=== PATIENT | male | born 1975 | race Caucasian/White ===

== ENCOUNTER 2018-10-19 13:45 | Emergency (ER) | payer OTHER ==
[~2018-10-19] VITALS: Ht 172.7 cm; Wt 117.9 kg
[2018-10-19 13:50] VITALS: BP 140/90; Ht 172.7 cm; Wt 117.9 kg
[2018-10-19 16:31] LABS: URIC ACID 7.8 mg/dL (3.5-7.2)
[2018-10-19 16:48] LABS: C REACTIVE PROTEIN 18.4 mg/dL (<=0.9)
== END 2018-10-19 17:54 | disposition home or self-care (01) ==
LOC: ED 13:45
PROVIDERS: Emergency Medicine
DX: M10.072 Idiopathic gout, left ankle and foot (principal)
CPT/HCPCS: J1885